=== PATIENT | female | born 1960 | race Caucasian/White ===

== ENCOUNTER 2021-05-25 03:05 | Observation (INO) | payer BC ==
[~2021-05-25] VITALS: Ht 157.5 cm; Wt 59.0 kg
[2021-05-25 04:19] LABS: HEMOGLOBIN 15.8 gm/dl (12.3-15.3); RED BLOOD COUNT 4.76 M/UL (4.00-5.10); WHITE BLOOD COUNT 10.2 K/UL (4.5-11.0)
[2021-05-25 04:44] LABS: BUN/CREATININE RATIO 10 (0-10)
[2021-05-25] MEDS ORDERED: XANAX0.5 MG PO (15:26)
[2021-05-25] MEDS ORDERED: GABAPENTIN600 MG PO (15:27)
[2021-05-25] MEDS ORDERED: DULOXETINE HCL60 MG PO (15:27)
[2021-05-25] MEDS ORDERED: LISINOPRIL40 MG PO (15:27)
[2021-05-25] MEDS ORDERED: BUDESONIDE-FO10.2 GM INH (15:28)
[2021-05-25] MEDS ORDERED: ANASTROZOLE1 MG PO (15:28)
[2021-05-25] MEDS ORDERED: ZOCOR40 MG PO (15:28)
[2021-05-25] MEDS ORDERED: CHLORTHALIDONE25 MG PO (15:29)
[2021-05-25] MEDS ORDERED: MONTELUKAST SOD10 MG PO (15:29)
[2021-05-25] MEDS ORDERED: DAILY VALUE1 EACH PO (15:30)
[2021-05-25] MEDS ORDERED: ZYRTEC10 MG PO (15:30)
[2021-05-25] MEDS ORDERED: IBU400 MG PO (15:30)
[2021-05-26 11:10] LABS: HEMOGLOBIN 12.9 gm/dl (12.3-15.3); RED BLOOD COUNT 3.95 M/UL (4.00-5.10); WHITE BLOOD COUNT 6.2 K/UL (4.5-11.0)
[2021-05-26 11:34] LABS: BUN/CREATININE RATIO 8 (0-10)
[2021-05-27 07:31] LABS: HEMOGLOBIN 13.9 gm/dl (12.3-15.3); RED BLOOD COUNT 4.22 M/UL (4.00-5.10); WHITE BLOOD COUNT 6.1 K/UL (4.5-11.0)
[2021-05-27 08:42] LABS: BUN/CREATININE RATIO 9 (0-10)
[2021-05-27] MEDS ORDERED: LISINOPRIL10 MG PO (16:42)
[2021-05-27] MEDS ORDERED: PROTONIX40 MG PO (16:42)
== END 2021-05-27 17:15 | disposition home or self-care (01) ==
LOC: ER1 03:05 → CDU 05:52 → MED SURG 4 11:36
PROVIDERS: Internal Medicine; Student in an Organized Health Care Education/Training Program; ADMIT Internal Medicine
DX: E86.0 Dehydration (principal); I95.9 Hypotension, unspecified; I10 Essential (primary) hypertension; E78.5 Hyperlipidemia, unspecified; J44.9 Chronic obstructive pulmonary disease, unspecified; F17.210 Nicotine dependence, cigarettes, uncomplicated; Z90.49 Acquired absence of other specified parts of digestive tract; K76.0 Fatty (change of) liver, not elsewhere classified; K21.9 Gastro-esophageal reflux disease without esophagitis; Z88.2 Allergy status to sulfonamides; F41.9 Anxiety disorder, unspecified; R00.1 Bradycardia, unspecified; Z20.822 Contact with and (suspected) exposure to COVID-19; G31.9 Degenerative disease of nervous system, unspecified; J32.2 Chronic ethmoidal sinusitis
CPT/HCPCS: ECHO; 36415; 70450; 71045; 80048; 80053; 80307; 81001; 82533; 82550; 82553; 83605; 83874; 84484; 85025; 86140; 87040; 93005; 93270; 93306; 94640; 94760; C9113; G0378; G0480; J1650; J7030; U0002